=== PATIENT | female | born 1990 | race Asian ===

== ENCOUNTER 2019-12-24 01:33 | Emergency (ER) | payer MEDICAID ==
[~2019-12-24] VITALS: Ht 157.5 cm; Wt 81.6 kg
--- NOTE | 2019-12-24 01:55 | Emergency Room Report ---
History of Present Illness General Chief Complaint: To Be Triaged Source: Patient Present Illness HPI Patient is a 29-year-old female denies any significant past medical history who presents to the ER complaining of left ankle pain. Patient states that she was walking her dog and that her foot twisted on uneven pavement. She states that she took 2 Advil prior to arrival which is helped her pain. She denies falling to the ground. She denies any head trauma or loss of consciousness. Patient is able to ambulate but states that it is painful. She denies any prior history of trauma to her left ankle. Allergies: Coded Allergies: No Known Allergies (Unverified , 12/24/19) Patient History Past Medical History: none Past Surgical History: none Social History: Denies: smoking, alcohol use, drug use Review of Systems All Other Systems: negative except mentioned in HPI Physical Exam Sp02 EP Interpretation: reviewed, normal General Appearance: no apparent distress, alert, GCS 15, non-toxic Head: normocephalic, atraumatic Eyes: bilateral eye normal inspection, bilateral eye PERRL ENT: hearing grossly normal, normal pharynx, no angioedema, normal voice Neck: full range of motion, supple/symm/no masses Respiratory: chest non-tender, lungs clear, normal breath sounds, speaking full sentences Cardiovascular #1: regular rate, rhythm, no edema Gastrointestinal: normal bowel sounds, non tender, soft, non-distended, no guarding, no rebound Rectal: deferred Genitourinary: normal inspection, no CVA tenderness Musculoskeletal: other - L ankle lateral malleolus mild tenderness to palpation with no obvious deformity, erythema, ecchymosis or edema. 2+ pedal pulses, cap refill immediate Skin: no rash Lymphatic: no adenopathy Procedures Splinting Splinting : Consent: Verbal Location: L ankle Pre-Made Type: aircast Pre-Proc Neuro Vasc Exam: normal Post-Proc Neuro Vasc Exam: normal Patient Tolerated: Well Complications: None Medical Decision Making Diagnostic Impression: Primary Impression: Ankle sprain ER Course Patient presents after left ankle injury. X-ray demonstrates no acute fractures. X-ray will be reread by radiology in the morning and we will call the patient if they find any acute findings. I informed the patient that I am not a radiologist but that I do not see any acute fractures but that the radiologist would read reviewed in the morning. She states that she gave us the correct phone number to call her in case there were any abnormal findings by radiology. Patient is neurovascularly intact. She has been given an Aircast for comfort. I advised her to keep her extremity iced, elevated and to rest it. She will take Motrin as needed for pain which she has at home. I told her to eat before taking it so it does not upset her stomach. After discussing risks and benefits of further diagnostics, treatment plans, as well as indications for and risks of admission, the patient is agreeable to being discharged home. I have explained that their evaluation and treatment in the emergency department today is an important step towards them achieving better health but that their evaluation today is not intended to replace further evaluation and treatment by a physician in their local clinic. I have explained that while the current findings suggest no immediate life threatening emergency they will require further evaluation and treatment by a physician of their choice in their area. They understand that it will be necessary for them to review the final reports of their ED visit with their clinic physician. We have reviewed indications for return to the Emergency Department. I have explained that additional time may need to pass and/or additional testing as an outpatient may be necessary before a definitive diagnosis can be made. They tell me they are willing to follow up as instructed within the timeframe I recommend. They appear to understand what we discussed. Additionally they understand that if they are unable to be seen by an outpatient physician they are welcome, and in fact should, return to the Emergency Department for a repeat evaluation. The patient is stable at time of discharge. Other X-Ray Diagnostic Results Other X-Ray Diagnostic Results : X-Ray ordered: L ankle x-ray # of Views/Limited Vs Complete: 3 View Indication: Pain EP Interpretation: Yes Interpretation: no dislocation, no fractures, other - no foregin body Impression: No acute disease Electronically Signed by: Shaye Gill MD Disposition: HOME, SELF-CARE Condition: Stable Additional Instructions: The patient was provided with discharge instructions, notified to follow-up with a primary care doctor and or specialist in the next 24-48 hours, and to return to the ED if they have worsening of their symptoms. Please note that this report is being documented using [employer] technology. This can lead to erroneous entry secondary to incorrect interpretation by the dictating instrument. Shaye Gill M.D. December 24, 2019 01:55
[2019-12-24 02:01] VITALS: BP 150/83
--- NOTE | 2019-12-24 02:02 | NUR ---
ED Nurse Note: XR AT BEDSIDE
--- NOTE | 2019-12-24 02:02 | NUR ---
ED Nurse Note: PT BROUGHT BY FAMILY VIA WHEELCHAIR FROM HOME C/O LEFT ANKLE PAIN S/P FALL DURING A WALK, TRIPPING ON A HOLE. NO TRAUMA NOTED. VSS, NAD, AAOX4
[2019-12-24 02:18] VITALS: BP 150/83
--- NOTE | 2019-12-24 02:18 | NUR ---
ER DISCHARGE NOTE: Patient is cleared to be discharged per ERMD, pt is aox4, on room air, with stable vital signs. pt was given dc instructions, pt was able to verbalize understanding, pt id band removed without complications. pt is able to ambulate with steady gait. pt took all belongings. Applied air splint on L ankle and provided with crutches and instructions on using it
--- NOTE | 2019-12-24 02:31 | Diagnostic Imaging Report ---
EXAM: XR Left Ankle Complete, 3 Views CLINICAL HISTORY: TRAUMA TECHNIQUE: Frontal, lateral and oblique views of the left ankle. COMPARISON: No relevant prior studies available. FINDINGS: Bones/joints: Unremarkable. No acute fracture. No dislocation. Soft tissues: Unremarkable. IMPRESSION: No radiographic evidence of acute fracture or dislocation.
== END 2019-12-24 02:18 | disposition home or self-care (01) ==
LOC: EMR 02:15
DX: S93.402A Sprain of unspecified ligament of left ankle, initial encounter (principal); X50.1XXA Overexertion from prolonged static or awkward postures, initial encounter; Y92.9 Unspecified place or not applicable
CPT/HCPCS: 73610; Z7502; 99283